=== PATIENT | male | born 1990 | race Caucasian/White ===

== ENCOUNTER 2018-11-03 21:29 | Emergency (ER) | payer OTHER ==
[2018-11-03] MEDS ORDERED: RABIES IMMUNE GLOB 300 UNIT/ML 5 ML VIAL IM ONE (22:21)
[2018-11-03] MEDS ORDERED: RABIES VACC,HUMAN DIPLOID (PF) 2.5 UNIT KIT IM ONE (22:21)
--- NOTE | 2018-11-03 22:43 | ED ---
Animal Bite HPI - General Chief Complaint: Animal Bite Stated Complaint: Poss Bat Bite Time Seen by Provider: 11/03/18 22:03 Source: patient Mode of arrival: ambulatory Limitations: no limitations - History of Present Illness Initial Comments: Patient is a 28-year-old male presenting to emergency Department with complaints of a possible bat bite that occurred yesterday evening. Patient states he was at his mother's house when a bat flew in her house and he attempted to put a towel over it and grab it. Patient states he thinks that the bat might have bitten him on his right thumb. Patient states he recalls feeling a slight "prick" feeling when he went to grab for the bat. Patient states he does not see any kind of bite gillis on his right thumb. Patient also denies any fever, chills, erythema from the area. No other complaints at this time. Patient was unable to retrieve the past as it flew out of the house. - Related Data Allergies Allergy/AdvReac Type Severity Reaction Status Date / Time No Known Allergies Allergy Verified 11/03/18 21:54 Review of Systems ROS Statement: Those systems with pertinent positive or pertinent negative responses have been documented in the HPI. ROS Other: All systems not noted in ROS Statement are negative. Past Medical History Past Medical History: No Reported History History of Any Multi-Drug Resistant Organisms: None Reported Past Surgical History: No Surgical Hx Reported Past Psychological History: No Psychological Hx Reported Smoking Status: Never smoker Past Alcohol Use History: Occasional Past Drug Use History: None Reported General Exam - General Exam Comments Initial Comments: GENERAL: Well-appearing, well-nourished and in no acute distress. HEAD: Atraumatic, normocephalic. EYES: Pupils equal round and reactive to light, extraocular movements intact, sclera anicteric, conjunctiva are normal. ENT: TMs normal, nares patent, oropharynx clear without exudates. Moist mucous membranes. NECK: Normal range of motion, supple without lymphadenopathy or JVD. LUNGS: Breath sounds clear to auscultation bilaterally and equal. No wheezes rales or rhonchi. HEART: Regular rate and rhythm without murmurs, rubs or gallops. ABDOMEN: Soft, nontender, normoactive bowel sounds. No guarding, no rebound. No masses appreciated. : Deferred EXTREMITIES: Normal range of motion, no pitting or edema. No clubbing or cyanosis. No signs of a bite noe on the right thumb. No erythema, edema of the right thumb. NEUROLOGICAL: Cranial nerves II through XII grossly intact. Normal speech, normal gait. PSYCH: Normal mood, normal affect. SKIN: Warm, Dry, normal turgor, no rashes or lesions noted. Limitations: no limitations Course Vital Signs 11/03/18 11/03/18 21:48 23:20 Temperature 98.6 F 98.7 F Pulse Rate 91 86 Respiratory 18 16 Rate Blood Pressure 144/71 138/78 O2 Sat by Pulse 100 99 Oximetry Medical Decision Making - Medical Decision Making Patient is a 28-year-old male who admits to being in contact with the bat last night. Patient states he was trying to get a bat out of his mother's house, through a towel over it, and then tried to grab the bat. Patient states he thinks he felt a "prick" on his right thumb from the bat. Patient denies seeing any bite gillis on his thumb or erythema or swelling of the thumb. On exam patient has no signs of bite noe on his right thumb. Patient was given the rabies vaccine as well as rabies immune globulin around the wound. Patient will be returning on days 3, 7, and 14 for continued rabies vaccine. Patient understands this plan. Patient will be discharged home. Case discussed with Dr. Thomas. Disposition Clinical Impression: Rabies contact Disposition: HOME SELF-CARE Condition: Stable Instructions (If sedation given, give patient instructions): Animal Bite (ED) Additional Instructions: Please return to the Emergency Department if symptoms worsen or any other concerns. Follow instructions on rabies information for return visits for continued rabies vaccine. Is patient prescribed a controlled substance at d/c from ED?: No Referrals: Ted Ramirez MD [Primary Care Provider] - 1-2 days
[2018-11-03 23:20] VITALS: BP 138/78; PULSE 86; RESP 16; TEMP 98.7
== END 2018-11-03 23:20 | disposition home or self-care (01) ==
LOC: EC 21:29
DX: Z20.3 Contact with and (suspected) exposure to rabies (principal); Z23 Encounter for immunization
CPT/HCPCS: 90375; 90471; 90675; 96372; 99283